=== PATIENT | male | born 1975 | race Caucasian/White ===

== ENCOUNTER 2017-10-12 12:39 | Emergency (ER) | payer SELFPAY ==
[~2017-10-12] VITALS: Ht 175.2 cm; Wt 65.8 kg
[~2017-10-12 12:39] MED LIST: ATIVAN1 MG PO; NAPROSYN500 MG PO; NORCO 325 MG-51 TAB PO; PEN-V500 MG PO; PERIDEX 480 ML480 ML PO
== END 2017-10-12 14:35 | disposition home or self-care (01) ==
LOC: ED 12:39
DX: T15.02XA Foreign body in cornea, left eye, initial encounter (principal); F17.200 Nicotine dependence, unspecified, uncomplicated

== ENCOUNTER 2019-04-20 08:44 | Emergency (ER) | payer OTHER ==
[~2019-04-20] VITALS: Ht 175.2 cm; Wt 65.8 kg
== END 2019-04-20 09:26 | disposition home or self-care (01) ==
LOC: ED 08:44
DX: Z04.1 Encounter for examination and observation following transport accident (principal); F17.200 Nicotine dependence, unspecified, uncomplicated; V89.2XXA Person injured in unspecified motor-vehicle accident, traffic, initial encounter; Y93.89 Activity, other specified; Y92.64 Mine or pit as the place of occurrence of the external cause; Y99.0 Civilian activity done for income or pay